=== PATIENT | female | born 1980 | race Native Hawaiian/Other Pacific Islander ===

== ENCOUNTER 2017-01-02 21:38 | Emergency (ER) | payer OTHER ==
[~2017-01-02] VITALS: Ht 165.1 cm; Wt 73.2 kg
[~2017-01-02 21:38] MED LIST: HYDR-4003 PO; IBUP-1827 PO
[2017-01-02 22:11] VITALS: BP 114/75; PULSE 115; RESP 20; O2SAT 98
--- NOTE | 2017-01-03 00:16 | ED.REPORT ---
HPI-Rash / Abscess Date of Service Jan 03, 2017 ED Provider: Dc Jones MD Pt is a 36 year old female with a hx of DM and HTN presenting to the ED complaining of pain, redness and swelling to a spot on her lower back onset yesterday. She denies any pervious similar symptoms and denies being around anyone with a skin abscess recently. Denies fever, chills, nausea, vomiting, SOB or wheezing. She was unable to sleep last night due to severe pain. Nursing Notes Stated Complaint: BOIL ON BACK Chief Complaint: Skin Rash/Abscess Nursing Notes Reviewed: Yes ([email or web address] not reconciled) Allergies: Coded Allergies: No Known Allergies (Unverified , 01/02/17) Scheduled PRN Hydrocodone-Acetaminophen 5-325 mg (Hydrocodone-Acetaminophen 5-325 mg) 1 Each Tablet 1 TABLET PO Q4H PRN PRN For Pain Ibuprofen (Ibuprofen) 600 Mg Tablet 600 MG PO QID PRN PRN For Pain General Time Seen by MD: 00:15 Chief Complaint Abscess Hx Obtained From: Patient Arrived By: Walk-in Onset Occurred: Yesterday Symptom Duration: Since onset Location: : Back Quality: Painful Severity: Current: Severe Severity: Maximum: Severe Recent Healthcare: No recent doctor visit, No recent hospitalization Similar Sx Previous: No Past Medical History Past Medical History Reports: Diabetes mellitus, Hypertension Past Surgical History denies Smoking History Current Every Day Smoker Ambulatory Status Independent Review of Systems Constitutional: Denies: Chills, Fever Respiratory: Denies: Shortness of breath, Wheezing GI: Denies: Nausea, Vomiting Skin: Reports Rash, Reports Swelling Complete sys rev & neg: except as marked. Physical Exam Initial Vital Signs Vital Signs (First) Date Time Temp Pulse Resp B/P Pulse Ox O2 Delivery O2 Flow Rate FiO2 01/02/17 22:11 37.0 115 20 114/75 98 Room Air Initial VS: Reviewed, Vital signs abnormal (HR115) Head / Eyes: Atraumatic, Normocephalic, PERRL ENT: Mucous membranes moist, Conjunctiva normal, No scleral icterus Neck: Supple, Non-tender, Full range of motion Respiratory: No respiratory distress Cardiovascular: Intact distal pulses Abdomen / GI: No distention Extremities: Vascular intact, Neuro intact, No swelling, No tenderness Neurologic: Alert, Oriented, Nonfocal Psychiatric: Mood/affect normal, Behavior normal, Normal thought content General/Constitutional: Awake, Alert, No acute distress Skin: Warm, Dry, Intact Sizeable 3 cm abscess to the lower back. Surrounding cellulitis. Interpretation & Diagnostics Lab Results Interpretation Test 01/02/17 22:39 Hold Urine Received (Received) Lab Results Interpretation: Abscess culture pending Procedures Incision & Drainage Abscess I & D Abscess: 5x3 cm Time: 01:33 Procedure Performed by: ED physician Consent / Setup / Site Prep: Consent from patient, Time-out performed, Hand hygiene observed, Stand sterile technique, Standard surgical scrub, Sterile drapes applied Location of Abscess: left lower back Local Anesthesia: Bupivacaine 0.5% Incised Abscess with Scalpel: #10 Pus Drained: Large, Purulent discharge, Bloody Post-Procedure / Complications: Culture obtained, Gram stain ordered, Dressing applied, No complications, Condition improved, Tolerated procedure well , Patient stable Re-Eval/Medical Decision Med Decision/Clinical Course This is a 36-year-old healthy femalewith diabetes presents with localized skin abscess and surrounding cellulitis on the lumbar region of her back. 3 x 5 cm area involved. sHe is not septic, febrile or toxic. No additional findings are evident. The abscess was incised and drained a moderate amount of material material obtained. Wound cultures pending. Most likely etiology remains MRSA, patient is being discharged on Atrovent, ibuprofen, and a few hydrocodone. Given the location on her back, I have asked for her to return to the emergency department for wound check about 3 days as she does not have a PCP and not an easy way to set up an appointment at this time. Routine return precautions reviewed. Source of Hx: Old records Re-Evaluation/Progress : Patient Status: Condition improved Re-Evaluation/Progress Note: Performed I&D. Pt tolerated procedure well. Differential Diagnosis: Positive: Abscess, Negative: Gangrene, Hand, foot, mouth disease, Herpes zoster, Herpes zoster/ simplex, Osteomyelitis, Pediculosis (lice), Scabies Counseled Regarding: Diagnosis, Lab results, Need for follow-up, When/why to return to ED Discharge & Departure Impression: Primary Impression: Abscess Disposition: Home Discharge Condition All VS Reviewed: Yes Condition: Improved Patient Instructions: Abscess (ED) Additional Instructions: 1. You had a skin abscess incised and drained today. 2. Take the antibiotic trimethoprim sulfa 1 tablet twice a day for 10 days 3. It is okay to shower. If you can, change the dressing in ~2 days. 4. Return to the emergency department for wound recheck since it is on her back in about 3 days. 5. Ibuprofen 400 mg 3 times a day for pain as needed. 6. If needed for more severe pain take hydrocodone 1-2 tablets up to 3 times a day. No: This medication does contain a narcotic and causes drowsiness, no driving for 4 hours after taking. 7. Return to the emergency room if new or worsening symptoms occur in the interim. Referrals: [facility] Scribe Attestation Portions of this note were transcribed by Triston Medrano. I, Dr. Jones, personally performed the history, physical exam and medical decision-making; I reviewed and confirmed the accuracy of the information in the transcribed note. Signed by: Triston Medrano, 01/03/17. copies to: [facility] Dc Jones MD Jan 03, 2017 00:16 TRISTON MEDRANO Jan 03, 2017 00:23
[2017-01-03] MEDS ORDERED: HYDROmorphone 1 mg/mL Inj IM ONE ×2 (00:20→01:10)
[2017-01-03] MEDS ORDERED: Lidocaine-Epi-Tetracaine Solution 3 mL Syringe TOPICAL ONE (00:20)
[2017-01-03] MEDS ORDERED: _HYDROcodone/APAP 5-325 mg Tablet PO PRN (00:20)
[2017-01-03] MEDS ORDERED: _Trimethoprim-Sulfa 160/800 mg Tablet PO SCH (00:20)
[2017-01-03] MEDS ORDERED: Ondansetron 8 mg ODT Tablet PO ONE (00:20)
[2017-01-03] MEDS ORDERED: HYDROmorphone 0.5 mg/0.5 mL iSecure Syringe IM ONE (00:55)
[2017-01-03 00:57] VITALS: BP 107/72; PULSE 107; O2SAT 99
[2017-01-03 02:03] VITALS: BP 97/67; PULSE 110; O2SAT 98
== END 2017-01-03 02:05 | disposition home or self-care (01) ==
LOC: SED 21:38
DX: L02.212 Cutaneous abscess of back [any part, except buttock and flank] (principal); I10 Essential (primary) hypertension; E11.9 Type 2 diabetes mellitus without complications; F17.200 Nicotine dependence, unspecified, uncomplicated
CPT/HCPCS: 10060; 87070; 87075; 87077; 87186; 87205; 96372; 99284; J1170